=== PATIENT | female | born 1995 | race Two or more races ===

== ENCOUNTER 2018-12-12 08:02 | Emergency (ER) | payer OTHER ==
[2018-12-12] MEDS ORDERED: ONDANSETRON HCL INJ/PF 4 MG/2 ML SDV IV ONE (09:10)
[2018-12-12] MEDS ORDERED: NORMAL SALINE 1000 ML 1,000 ML IV ONE (09:10)
--- NOTE | 2018-12-12 09:10 | ER Document Report ---
ED General - General Chief Complaint: Nausea/Vomiting Stated Complaint: NAUSEA,VOMITING Time Seen by Provider: 12/12/18 09:10 TRAVEL OUTSIDE OF THE [place] IN LAST 30 DAYS: No - HPI Notes: 23-year-old female presents with nausea vomiting starting Thursday. Patient says it started with a migraine headache that she classically suffers from but that is now resolved. Patient unable to tolerate oral intake. Denies fever chills or any gross abdominal pain denies diarrhea. Patient has already had a confirmation ultrasound performed showing intrauterine . - Related Data Allergies/Adverse Reactions: No Known Allergies Allergy (Verified 12/12/18 08:05) Past Medical History - Social History Smoking Status: Unknown if Ever Smoked Family History: None Review of Systems - Review of Systems Notes: REVIEW OF SYSTEMS: CONSTITUTIONAL: -fevers, -chills EENT: -eye pain, -difficulty swallowing, -nasal congestion CARDIOVASCULAR: -chest pain, -syncope. RESPIRATORY: -cough, -SOB GASTROINTESTINAL: -abdominal pain, positive nausea and vomiting, -diarrhea GENITOURINARY: -dysuria, -hematuria MUSCULOSKELETAL: -back pain, -neck pain SKIN: -rash or skin lesions. HEMATOLOGIC: -easy bruising or bleeding. LYMPHATIC: -swollen, enlarged glands. NEUROLOGICAL: -altered mental status or loss of consciousness, -headache, - neurologic symptoms PSYCHIATRIC: -anxiety, -depression. ALL OTHER SYSTEMS REVIEWED AND NEGATIVE. Physical Exam - Vital signs Vitals: Temp Pulse Resp BP Pulse Ox 98.3 F 99 16 135/92 H 99 12/12/18 08:09 12/12/18 08:09 12/12/18 08:09 12/12/18 08:09 12/12/18 08:09 - Notes Notes: PHYSICAL EXAMINATION: GENERAL: Well-appearing, well-nourished and in no acute distress. HEAD: Atraumatic, normocephalic. EYES: Pupils equal round and reactive to light, extraocular movements intact, sclera anicteric, conjunctiva are normal. ENT: nares patent, oropharynx clear without exudates. Moist mucous membranes. NECK: Normal range of motion, supple without lymphadenopathy LUNGS: Breath sounds clear to auscultation bilaterally and equal. No wheezes rales or rhonchi. HEART: Regular rate and rhythm without murmurs ABDOMEN: Soft, nontender, normoactive bowel sounds. No guarding, no rebound. No masses appreciated. EXTREMITIES: Normal range of motion, no pitting or edema. No cyanosis. NEUROLOGICAL: Cranial nerves grossly intact. Normal speech, normal gait. Normal sensory and motor exams. PSYCH: Normal mood, normal affect. SKIN: Warm, Dry, normal turgor, no rashes or lesions noted. Course - Re-evaluation Re-evalutation: 12/12/18 09:18 Well-appearing young female no chronic medical history stable vital signs within normal limits presents with a short course of nausea and vomiting. Patient be given fluid resuscitation antiemetics will check labs. 12/12/18 10:18 Gross lab abnormalities mild dehydration and ketosis. Patient given IV fluids and dextrose with antiemetics feeling markedly improved will be discharged home Given strict return precautions if anything should change please return - Vital Signs Vital signs: Temp Pulse Resp BP Pulse Ox 98.3 F 99 16 135/92 H 99 12/12/18 08:09 12/12/18 08:09 12/12/18 08:09 12/12/18 08:09 12/12/18 08:09 - Laboratory Result Diagrams: 12/12/18 09:20 12/12/18 09:20 Laboratory results interpreted by me: 12/12/18 12/12/18 12/12/18 09:20 09:20 09:20 Seg Neutrophils % 79.3 H BUN 21 H Urine Protein 30 H Urine Ketones 300 H Urine Ascorbic Acid 20 H Discharge - Discharge Clinical Impression: Nausea and vomiting Qualifiers: Vomiting type: unspecified Vomiting Intractability: non-intractable Qualified Code(s): R11.2 - Nausea with vomiting, unspecified Disposition: HOME, SELF-CARE Instructions: Prescribed Antidiarrhea Medications ([facility]) Additional Instructions: See your PCP and USABILITY STRATEGIST Prescriptions: Metoclopramide HCl [Reglan 10 mg Tablet] 10 mg PO Q8H PRN #20 tablet PRN Reason: For Nausea/Vomiting
[2018-12-12] MEDS ORDERED: DEXTROSE 50%-WATER 25 GM/50 ML DISP.SYRIN IV ONE (09:16)
[2018-12-12] MEDS ORDERED: METOCLOPRAMIDE HCL INJ/PF 10 MG/2 ML SDV IV ONE (09:16)
[2018-12-12 09:52] LABS: ABSOLUTE LYMPHOCYTES (AUTO) 1.3 10^3/uL (0.5-4.7); ABSOLUTE MONOCYTES (AUTO) 0.6 10^3/uL (0.1-1.4); ABSOLUTE NEUT (AUTO) 7.5 10^3/uL (1.7-8.2); BASOPHILS % (AUTO) 0.2 % (0-2); EOSINOPHILS % (AUTO) 0.1 % (0-6); HEMATOCRIT 40.4 % (36.0-47.0); LYMPHOCYTES % (AUTO) 14.2 % (13-45); MEAN CORPUSCULAR HEMOGLOBIN 30.6 pg (27.0-33.4); MEAN CORPUSCULAR HGB CONC 34.6 g/dL (32.0-36.0); MEAN CORPUSCULAR VOLUME 88 fl (80-97); MONOCYTES % (AUTO) 6.2 % (3-13); PLATELET COUNT 233 10^3/uL (150-450); RED BLOOD COUNT 4.57 10^6/uL (3.72-5.28); RED CELL DISTRIBUTION WIDTH 12.7 % (11.5-14.0); SEGMENTED NEUTROPHILS % (AUTO) 79.3 % (42-78); TOTAL CELLS COUNTED % (AUTO) 100 %; WHITE BLOOD COUNT 9.5 10^3/uL (4.0-10.5)
[2018-12-12 09:55] LABS: APPEARANCE,URINE CLEAR; BILIRUBIN,URINE NEGATIVE (NEGATIVE); COLOR,URINE YELLOW; GLUCOSE, URINE NEGATIVE (NEGATIVE); KETONES,URINE 300 mg/dL (NEGATIVE)
[2018-12-12 09:56] LABS: LEUKOCYTE ESTERASE,URINE NEGATIVE (NEGATIVE); NITRITE,URINE NEGATIVE (NEGATIVE); PROTEIN,URINE 30 mg/dL (NEGATIVE); URINE SPECIFIC GRAVITY 1.031; UROBILINOGEN,URINE NEGATIVE mg/dL (<2.0)
[2018-12-12 10:08] LABS: ALANINE AMINOTRANSFERASE 17 U/L (9-52); ALBUMIN 4.6 g/dL (3.5-5.0); ALKALINE PHOSPHATASE 50 U/L (38-126); ANION GAP 12 (5-19); ASPARTATE AMINO TRANSFERASE 22 U/L (14-36); BILIRUBIN,DIRECT 0.2 mg/dL (0.0-0.4); BILIRUBIN,TOTAL 0.5 mg/dL (0.2-1.3); BLOOD UREA NITROGEN 21 mg/dL (7-20); CARBON DIOXIDE 25 mmol/L (22-30); CHLORIDE 101 mmol/L (98-107); GLUCOSE 107 mg/dL (75-110); POTASSIUM 4.2 mmol/L (3.6-5.0); SODIUM 137.9 mmol/L (137-145); TOTAL PROTEIN 7.9 g/dL (6.3-8.2)
[2018-12-12 10:47] VITALS: BP 127/63
== END 2018-12-12 10:48 | disposition home or self-care (01) ==
LOC: ER 08:02
DX: R11.2 Nausea with vomiting, unspecified (principal); E86.0 Dehydration
CPT/HCPCS: 99283; 96361; 96374; 96375; 36415; 85025; 80053; 81001; J3490; J2765; J7030

== ENCOUNTER 2018-12-26 10:33 | Emergency (ER) | payer OTHER ==
[2018-12-26] MEDS ORDERED: METOCLOPRAMIDE HCL INJ/PF 10 MG/2 ML SDV IV ONE (11:12)
[2018-12-26] MEDS ORDERED: NORMAL SALINE 1000 ML 1,000 ML IV ONE (11:12)
--- NOTE | 2018-12-26 11:15 | ER Document Report ---
ED Medical Screen (RME) - General Chief Complaint: Nausea/Vomiting Stated Complaint: VOMITING Time Seen by Provider: 12/26/18 11:02 Notes: 23-year-old female presents with nausea and vomiting that started this past Thursday precipitated by a migraine headache. She said it was a typical migraine headache for her and she presented to this emergency department on December 10 for the same presentation. Currently patient is unable to tolerate oral intake. Denies fever, chills, or any gross abdominal pain, denies diarrhea. I have greeted and performed a rapid initial assessment of this patient. A comprehensive ED assessment and evaluation of the patient, analysis of test results and completion of medical decision making process will be conducted by an additional ED providers. TRAVEL OUTSIDE OF THE [place] IN LAST 30 DAYS: No - Related Data Allergies/Adverse Reactions: No Known Allergies Allergy (Verified 12/26/18 10:34) Past Medical History Neurological Medical History: Reports: Hx Migraine Renal/ Medical History: Denies: Hx Peritoneal Dialysis Physical Exam - Vital signs Vitals: Temp Pulse Resp BP Pulse Ox 98.7 F 96 15 129/87 H 96 12/26/18 10:37 12/26/18 10:37 12/26/18 10:37 12/26/18 10:37 12/26/18 10:37 - Notes Notes: PHYSICAL EXAMINATION: Reviewed vital signs and charting by RN GENERAL: Alert, interacts well. No acute distress. HEAD: Normocephalic, atraumatic. EYES: Pupils equal and round. Extraocular movements intact. ENT: Oral mucosa dry NECK: Full range of motion. Trachea midline. LUNGS: Clear to auscultation bilaterally, no wheezes, rales, or rhonchi. No respiratory distress. HEART: Regular rate and rhythm. No murmur ABDOMEN: Deferred in triage EXTREMITIES: Moves all 4 extremities spontaneously. No edema, No cyanosis. PSYCH: Normal affect, normal mood. SKIN: Warm, dry, normal turgor. No rashes or lesions noted. Course - Vital Signs Vital signs: Temp Pulse Resp BP Pulse Ox 98.7 F 96 15 129/87 H 96 12/26/18 10:37 12/26/18 10:37 12/26/18 10:37 12/26/18 10:37 12/26/18 10:37
[2018-12-26 11:43] LABS: ABSOLUTE LYMPHOCYTES (AUTO) 1.5 10^3/uL (0.5-4.7); ABSOLUTE MONOCYTES (AUTO) 0.6 10^3/uL (0.1-1.4); ABSOLUTE NEUT (AUTO) 7.5 10^3/uL (1.7-8.2); BASOPHILS % (AUTO) 0.2 % (0-2); HEMATOCRIT 40.7 % (36.0-47.0); HEMOGLOBIN 13.8 g/dL (12.0-15.5); LYMPHOCYTES % (AUTO) 16.1 % (13-45); MEAN CORPUSCULAR HEMOGLOBIN 30.2 pg (27.0-33.4); MEAN CORPUSCULAR VOLUME 89 fl (80-97); MONOCYTES % (AUTO) 6.3 % (3-13); PLATELET COUNT 236 10^3/uL (150-450); RED BLOOD COUNT 4.58 10^6/uL (3.72-5.28); RED CELL DISTRIBUTION WIDTH 12.8 % (11.5-14.0); SEGMENTED NEUTROPHILS % (AUTO) 77.4 % (42-78); TOTAL CELLS COUNTED % (AUTO) 100 %; WHITE BLOOD COUNT 9.6 10^3/uL (4.0-10.5)
[2018-12-26 11:56] LABS: APPEARANCE,URINE SLIGHTLY-CLOUDY; BILIRUBIN,URINE NEGATIVE (NEGATIVE); COLOR,URINE YELLOW; GLUCOSE, URINE NEGATIVE (NEGATIVE); KETONES,URINE 80 mg/dL (NEGATIVE); LEUKOCYTE ESTERASE,URINE TRACE (NEGATIVE); NITRITE,URINE NEGATIVE (NEGATIVE); PROTEIN,URINE 30 mg/dL (NEGATIVE); URINE SPECIFIC GRAVITY 1.028; UROBILINOGEN,URINE NEGATIVE mg/dL (<2.0)
[2018-12-26 12:09] LABS: ALANINE AMINOTRANSFERASE 20 U/L (9-52); ALBUMIN 4.6 g/dL (3.5-5.0); ALKALINE PHOSPHATASE 61 U/L (38-126); ANION GAP 12 (5-19); ASPARTATE AMINO TRANSFERASE 20 U/L (14-36); BILIRUBIN,DIRECT 0.3 mg/dL (0.0-0.4); BILIRUBIN,TOTAL 0.5 mg/dL (0.2-1.3); BLOOD UREA NITROGEN 17 mg/dL (7-20); CALCIUM 10.1 mg/dL (8.4-10.2); CARBON DIOXIDE 25 mmol/L (22-30); CHLORIDE 101 mmol/L (98-107); GLUCOSE 87 mg/dL (75-110); POTASSIUM 4.1 mmol/L (3.6-5.0); TOTAL PROTEIN 7.8 g/dL (6.3-8.2)
--- NOTE | 2018-12-26 12:26 | ER Document Report ---
ED General - General Chief Complaint: Nausea/Vomiting Stated Complaint: VOMITING Time Seen by Provider: 12/26/18 11:02 Notes: 23-year-old female presents with nausea and vomiting that started this past Thursday precipitated by a migraine headache. She said it was a typical migraine headache for her and she presented to this emergency department on December 10 for the same presentation. Currently patient is unable to tolerate oral intake. Denies fever, chills, or any gross abdominal pain, denies diarrhea. TRAVEL OUTSIDE OF THE [place] IN LAST 30 DAYS: No - Related Data Allergies/Adverse Reactions: No Known Allergies Allergy (Verified 12/26/18 10:34) Past Medical History - Social History Smoking Status: Never Smoker Family History: None Neurological Medical History: Reports: Hx Migraine Renal/ Medical History: Denies: Hx Peritoneal Dialysis Review of Systems - Review of Systems Constitutional: See HPI EENT: No symptoms reported Cardiovascular: No symptoms reported Respiratory: See HPI Gastrointestinal: See HPI Genitourinary: See HPI Female Genitourinary: See HPI Musculoskeletal: No symptoms reported Skin: No symptoms reported Hematologic/Lymphatic: No symptoms reported Neurological/Psychological: See HPI Physical Exam - Vital signs Vitals: Temp Pulse Resp BP Pulse Ox 98.7 F 96 15 129/87 H 96 12/26/18 10:37 12/26/18 10:37 12/26/18 10:37 12/26/18 10:37 12/26/18 10:37 - Notes Notes: PHYSICAL EXAMINATION: Reviewed vital signs and charting by RN GENERAL: Alert, interacts well. No acute distress. HEAD: Normocephalic, atraumatic. EYES: Pupils equal and round. Extraocular movements intact. ENT: Oral mucosa dry NECK: Full range of motion. Trachea midline. LUNGS: Clear to auscultation bilaterally, no wheezes, rales, or rhonchi. No respiratory distress. HEART: Regular rate and rhythm. No murmur ABDOMEN: Deferred in triage EXTREMITIES: Moves all 4 extremities spontaneously. No edema, No cyanosis. PSYCH: Normal affect, normal mood. SKIN: Warm, dry, normal turgor. No rashes or lesions noted. Course - Re-evaluation Re-evalutation: 12/26/18 13:05 Patient presents with intractable nausea and vomiting. Seen here 2 weeks ago for the same problem and symptoms resolved with Reglan. Patient received normal saline 1 L and Reglan 10 mg IV. Patient states her symptoms have completely res olved. I have given her a small prescription for Reglan and told her to follow- up with her matchbook assembler. Urinalysis did show 80 ketones so she probably had some mild dehydration. All lab work was within normal limits and vital signs were within normal limits, patient is not tachycardic or appears clinically dehydrated. She is stable for discharge. - Vital Signs Vital signs: Temp Pulse Resp BP Pulse Ox 98.7 F 96 15 129/87 H 96 12/26/18 10:37 12/26/18 10:37 12/26/18 10:37 12/26/18 10:37 12/26/18 10:37 - Laboratory Result Diagrams: 12/26/18 11:29 12/26/18 11:29 Laboratory results interpreted by me: 12/26/18 12/26/18 11:29 11:29 Beta HCG, Quant 41520.00 H Urine Protein 30 H Urine Ketones 80 H Ur Leukocyte Esterase TRACE H Discharge - Discharge Clinical Impression: Mild dehydration Nausea and vomiting Qualifiers: Vomiting type: unspecified Vomiting Intractability: intractable Qualified Code(s): R11.2 - Nausea with vomiting, unspecified Condition: Good Disposition: HOME, SELF-CARE Additional Instructions: You have been seen for vomiting during . You should continue to drink plenty of water and consider taking a solution such as Pedialyte if your having difficulty eating food. Please return if you become unable to drink any fluids for more than 12 hours, urinate less than twice a day, pass out, or have any other symptoms that are concerning to you. For nausea and vomiting during I recommend: Start with 10-12.5 mg of pyridoxine (vitamin B6) three times a day for 2 days. If not fully effective, Increase to 12.5 mg of pyridoxine four times a day for 2 days. If not fully effective, Increase to 25 mg of pyridoxine three times a day for 2 days. If not fully effective, Continue 25 mg pyridoxine 3 times a day, and add 12.5 mg of doxylamine before b edtime each day for 2 days. If not fully effective, Continue 25 mg pyridoxine 3 times a day, and take 12.5 mg of doxylamine twice a day. If not fully effective, Continue 25 mg pyridoxine 3 times a day, and take 12.5 mg of doxylamine three times a day. If not fully effective, Continue 25 mg pyridoxine 3 times a day, and 12.5 mg of doxylamine 3 times a day, while adding Emetrol, one to two tablespoons (15-30 cc) taken once or twice a day as needed. (Emetrol is an [id number] mixture of sugar syrups and phosphoric acid [phosphorylated carbohydrate solution]) that acts by soothing the actual wall of the gastrointestinal tract). If not fully effective, Consult with your doctor.
[2018-12-26 13:23] VITALS: BP 123/85
== END 2018-12-26 13:25 | disposition home or self-care (01) ==
LOC: ER 10:33
DX: R11.2 Nausea with vomiting, unspecified (principal); E86.0 Dehydration
CPT/HCPCS: 99283; 96361; 96374; 36415; 87086; 84702; 85025; 80053; 81001; J2765; J7030

== ENCOUNTER 2019-07-13 22:42 | Inpatient (IN) | payer BC ==
[2019-07-13 23:07] LABS: APPEARANCE,URINE SLIGHTLY-CLOUDY; BILIRUBIN,URINE NEGATIVE (NEGATIVE); COLOR,URINE YELLOW; GLUCOSE, URINE NEGATIVE (NEGATIVE); KETONES,URINE NEGATIVE (NEGATIVE); LEUKOCYTE ESTERASE,URINE MODERATE (NEGATIVE); NITRITE,URINE NEGATIVE (NEGATIVE); PROTEIN,URINE 100 mg/dL (NEGATIVE); URINE SPECIFIC GRAVITY 1.019
[2019-07-13 23:27] LABS: URINE AMPHETAMINES SCREEN NEGATIVE; URINE BARBITURATES SCREEN NEGATIVE; URINE BENZODIAZEPINES SCREEN NEGATIVE; URINE COCAINE SCREEN NEGATIVE; URINE MARIJUANA (THC) SCREEN NEGATIVE; URINE METHADONE SCREEN NEGATIVE; URINE PHENCYCLIDINE SCREEN NEGATIVE
[2019-07-14] MEDS ORDERED: MISOPROSTOL 0.2 MG TABLET ONE (02:21)
[2019-07-14] MEDS ORDERED: OXYTOCIN 10 UNIT/ML VIAL ONE (02:21)
[2019-07-14] MEDS ORDERED: LIDOCAINE 1% INJ-PF (10 MG/ML) 30 ML SDV ONE (02:22)
[2019-07-14] MEDS ORDERED: OXYTOCIN/NORMAL SALINE 20 UNIT/1,000 ML RTUINJ ONE (02:22)
[2019-07-14] MEDS ORDERED: FENTANYL/BUPIVACAINE/NS/PF 300 MCG/150 ML RTUINJ EPI ONE (02:52)
[2019-07-14] MEDS ORDERED: BUPIVACAINE HCL 0.25 % INJ/PF (2.5 MG/1 ML) 30 ML VIAL ONE (02:52)
[2019-07-14] MEDS ORDERED: EPHEDRINE SULFATE INJ 50 MG/1 ML AMPULE ONE (02:52)
[2019-07-14 02:56] LABS: ABSOLUTE LYMPHOCYTES (AUTO) 1.6 10^3/uL (0.5-4.7); ABSOLUTE MONOCYTES (AUTO) 0.8 10^3/uL (0.1-1.4); ABSOLUTE NEUT (AUTO) 5.3 10^3/uL (1.7-8.2); BASOPHILS % (AUTO) 0.4 % (0-2); EOSINOPHILS % (AUTO) 0.5 % (0-6); HEMATOCRIT 27.2 % (36.0-47.0); HEMOGLOBIN 9.3 g/dL (12.0-15.5); LYMPHOCYTES % (AUTO) 20.4 % (13-45); MEAN CORPUSCULAR HEMOGLOBIN 27.3 pg (27.0-33.4); MEAN CORPUSCULAR HGB CONC 34.2 g/dL (32.0-36.0); MEAN CORPUSCULAR VOLUME 80 fl (80-97); MONOCYTES % (AUTO) 10.8 % (3-13); PLATELET COUNT 184 10^3/uL (150-450); RED BLOOD COUNT 3.41 10^6/uL (3.72-5.28); RED CELL DISTRIBUTION WIDTH 14.7 % (11.5-14.0); SEGMENTED NEUTROPHILS % (AUTO) 67.9 % (42-78); TOTAL CELLS COUNTED % (AUTO) 100 %; WHITE BLOOD COUNT 7.8 10^3/uL (4.0-10.5)
--- NOTE | 2019-07-14 06:05 | Admission Physical ---
Datetime Report Generated by CPN: 07/14/2019 06:05 CURRENT ADMISSION Chief Complaint: Other Chief Complaint Other: vaginal bleeding Indication for Induction: Not Applicable Admit Impression : Term, Intrauterine ; Active Labor Admit Plan: Admit to Unit; Initiate Labor Augmentation Protocol ALLERGIES Medication Allergies: No Medication Allergies: No Known Allergies (07/13/2019) Latex: No Latex Allergies Food Allergies: None Environmental Allergies: none OBSTETRICAL HISTORY EDC: 07/15/2019 00:00 : 1 Para: 0 Term: 0 : 0 SAB: 0 IAB: 0 Ectopic: 0 Livin Cesareans: 0 Multiple Births: 0 Gestational Diabetes: No Rh Sensitization: No Incompetent Cervix: No ALISTAIR: No Infertility: No ART Treatment: No Uterine Anomaly: No IUGR: No Hx Previous C/S: No Macrosomia: No Hx Loss/Stillborn: No PIH: No Hx : No Placenta Previa/Abruption: No Depression/PP Depression: No PTL/PROM: No Post Hemorrhage: No Current Procedures: Ultrasound Obstetrical History Comments: G1- Current SEE RECORDS Alcohol: No Marijuana : No Cocaine: No Other Illicit Drugs: No Cigarettes: Never Smoker. [id number] MEDICAL HISTORY Diabetes: No Blood Transfusion: No Pulmonary Disease (Asthma, TB): No Breast Disease: No Hypertension: No Multimedia Journalist Surgery: No Heart Disease: No Hosp/Surgery: Yes Autoimmune Disorder: No Anesthetic Complications: No Kidney Disease: No Abnormal Pap Smear: No Neuro/Epilepsy: No Psychiatric Disorders: Yes Other Medical Diseases: No Hepatitis/Liver Disease: No Significant Family History: No Varicosities/Phlebitis: No Trauma/Violence : No Thyroid Dysfunction: No Medical History Comments: [place] teeth at age 18/anxiety INFECTIOUS HISTORY Gonorrhea: No Genital Herpes: No Chlamydia: No Tuberculosis: No Syphilis: No Hepatitis: No HIV/AIDS Exposure: No Rash or Viral Illness: No HPV: No PHYSICAL EXAM General: Normal HEENT: Normal Neurologic: Normal Thyroid: Normal Heart: Normal Lungs: Normal Breast: Normal Back: Normal Abdomen: Normal Genitourinary Exam: Normal Extremities: Normal DTRs: Normal Pelvic Type: Adequate Vital Signs: Reviewed; Within Normal Limits VAGINAL EXAM Dilatation: 9 Effacement: 80 Station: -2 Contraction Comments: q 4 min FETUS A EGA: 39.6 Monitoring: External US FHR- Baseline: 120s Variability: Moderate 6-25bpm Accelerations: 15X15 Decelerations: None FHR Category: Category I Admit Comment: with an IUP @ 39-5/7 weeks presents to L_D c/o vaginal bleeding. She reports good movement. Her cervical exam was 3 cm upon arrival and she rapidly progressed to 5 cm. She has no other co-morbidities. GBS Neg. PLANS FOR LABOR AND DELIVERY Pain Management: Medications; Epidural Feeding Preference: Breast Benefit of Breast Feed Discussed: Yes Circumcision: N/A INFORMED CONSENT Informed Consent Obtained: Vaginal Delivery Signature: with User ID: [email or web address]
[2019-07-14] MEDS ORDERED: OXYTOCIN/NORMAL SALINE 20 UNIT/1,000 ML RTUINJ IV PRN ×2 (10:30→12:48)
[2019-07-14] MEDS ORDERED: DIPHENHYDRAMINE HCL 25 MG CAPSULE PO PRN (12:48)
[2019-07-14] MEDS ORDERED: PSEUDOEPHEDRINE HCL 30 MG TABLET PO PRN (12:48)
[2019-07-14] MEDS ORDERED: MEASLES,MUMPS&RUBELLA VACC/PF 0.5 ML VIAL SUBCUT PRN (12:48)
[2019-07-14] MEDS ORDERED: GLYCERIN/WITCH HAZEL LEAF 1 EACH MED..WIPE TP PRN (12:48)
[2019-07-14] MEDS ORDERED: DIBUCAINE 1% OINTMENT 28 GM TP PRN (12:48)
[2019-07-14] MEDS ORDERED: DIPH/PERTUSS(ACELL)/TETANUS VAC/PF 0.5 ML SYR (>=10YO) IM PRN (12:48)
[2019-07-14] MEDS ORDERED: MAGNESIUM HYDROXIDE SUSP 30 ML UDCUP PO PRN (12:48)
[2019-07-14] MEDS ORDERED: ACETAMINOPHEN WITH CODEINE #3 TABLET PO PRN ×2 (12:48)
[2019-07-14] MEDS ORDERED: PROMETHAZINE HCL 25 MG TABLET PO PRN (12:48)
[2019-07-14] MEDS ORDERED: PROMETHAZINE HCL INJ 25 MG/1 ML VIAL IV PRN (12:48)
[2019-07-14] MEDS ORDERED: ACETAMINOPHEN 650 MG SUPP.RECT PR PRN (12:48)
[2019-07-14] MEDS ORDERED: ZOLPIDEM TARTRATE 5 MG TABLET PO PRN (12:48)
[2019-07-14] MEDS ORDERED: NA PHOS,M-B/NA PHOS,DI-BA (ADULT) 133 ML ENEMA PR PRN (12:48)
[2019-07-14] MEDS ORDERED: PROMETHAZINE HCL 25 MG SUPP.RECT PR PRN (12:48)
--- NOTE | 2019-07-14 15:04 | Delivery Summary ---
Del Sum A-C Datetime Report Generated by CPN: 07/14/2019 15:03 DELIVERY PERSONNEL DELIVERY PERSONNEL: [id number] Delivery Doctor:: Antonietta Valdovinos CNM Nurse Metal Flow Coordinator Certified:: Antonietta Valdovinos CNM Labor and Delivery Nurse:: Annette Anderson RNlaundry supervisor Nurse:: Erin Interiano RN Nursery Nurse:: Vero Martinez RN Nursery Nurse:: Latrell Grimaldo RN MATERNAL INFORMATION Delivery Anesthesia: Epidural Medications After Delivery: Pitocin Bolus-Please Comment Meds After Delivery Comment: 20 units in 1000mL NS open bolus Estimated Blood Loss (ml): 200 Delivery QBL: 150 Maternal Complications: None Provider Comments: Called to room 2. Patient pushing-vertex on perineum. live female at 1219 after 80 sec shoulder dystocia. Sabino and suprapubic pressure used to facilitate delivery of shoulders. Spontaneous respirations after stimulation. 3-vessel cord, clamped after 2 min delay, then cut by FOB. Nursery RN present for delivery and immediate care. Placenta expelled at 1226, Holder delivery, intact. Dr Cortez called in for repair of tear that extended toward rectum. LABOR SUMMARY EDC: 07/15/2019 00:00 No. Babies in Womb: 1 Attempted: No Labor Anesthesia: Epidural LABOR INFORMATION Reason for Induction: Not Applicable Onset of Labor: 07/14/2019 02:20 Complete Dilatation: 07/14/2019 11:22 Oxytocin: Augmentation Group B Beta Strep: neg Antibiotics # of Doses: 0 Antibiotics Time of Last Dose: n/a Name of Antibiotic Given: n/a Steroids Given: None Reason Steroids Not Administered: Not Applicable MEMBRANES Membranes Rupture Method: Artificial Rupture of Membranes: 07/14/2019 06:03 Length of Rupture (hr): 6.27 Amniotic Fluid Color: Clear Amniotic Fluid Amount: Moderate Amniotic Fluid Odor: Normal STAGES OF LABOR Stage 1 hr: 9 Stage 1 min: 2 Stage 2 hr: 0 Stage 2 min: 57 Stage 3 hr: 0 Stage 3 min: 7 Total Time in Labor hr: 10 Total Time in Labor min: 6 VAGINAL DELIVERY Episiotomy: None Laceration #1: Perineal Laceration Extension #1: Third Degree, IIIb (Greater than 50 percent ext anal sphincter thickness torn) Laceration #2: None Laceration Extension #2: N/A Laceration #3: None Laceration Extension #3: N/A Laceration Repair: Yes Laceration Repair Note: The vaginal portion was repaired with 3-0 chromic in a running locking fashion. The external anal sphincter was grasped with allis clamps and 3 figure 8 sutures of 3-0 vicryl were placed bringing the EAS back together. No sutures through rectum and good tone noted on rectal exam. The remainder of the perineum was closed with 3-0 chromic suture. I asked her to remain on a stool softener for her recovery. Sponge Count Correct: Yes; Vaginal Sweep Performed Sharps Count Correct: Yes CSECTION DELIVERY Primary Indication: N/A Secondary Indication: N/A CSection Incision: N/A BABY A INFORMATION Infant Delivery Date/Time: 07/14/2019 12:19 Method of Delivery: Vaginal Born in Route : Yes : N/A Forceps: N/A Vacuum Extraction: N/A Shoulder Dystocia : Yes SHOULDER DYSTOCIA BABY A Delivery of Head: 07/14/2019 12:18 Time Head to Delivery : 1.0 1st Intervention to Resolve: Gentle Attempt at Traction, Assisted by Maternal Expulsive Efforts 2nd Intervention to Resolve: McRobert's Maneuver 3rd Intervention to Resolve: Suprapubic Pressure Verify NO Fundal Pressure: No Fundal Pressure Applied Arm Under Symphisis at Del: Left Shoulder Dystocia Comments: 80 second shoulder dystocia PRESENTATION/POSITION BABY A Presentation: Cephalic Cephalic Presentation: Vertex Vertex Position: Right Occipital Anterior Breech Presentation: N/A PLACENTA INFORMATION BABY A Placenta Delivery Time : 07/14/2019 12:26 Placenta Method of Delivery: Spontaneous Placenta Status: Delivered SCORES BABY A Heart Rate 1 min: >100 bpm Resp Effort 1 min: Slow, Irregular Reflex Irritability 1 min: Grimace Muscle Tone 1 min: Some Flexion of Extremities Color 1 min: Blue/Pale Resuscitation Effort 1 min: N/A SCORE 1 MIN: 5 Heart Rate 5 min: >100 bpm Resp Effort 5 min: Good Cry Reflex Irritability 5 min: Cough or Sneeze or Pulls Away Muscle Tone 5 min: Active Motion Color 5 min: Body [place], Extremities Blue Resuscitation Effort 5 min: Tactile Stimulation SCORE 5 MIN: 9 Heart Rate 10 min: >100 bpm Resp Effort 10 min: Good Cry Reflex Irritability 10 min: Cough or Sneeze or Pulls Away Muscle Tone 10 min: Active Motion Color 10 min: Body [place], Extremities Blue SCORE 10 MIN: 9 INFORMATION BABY A Gestational Age at Delivery: 39.6 Gestational Status: Full Term- 39- 40.6 Weeks Outcome : Liveborn Condition : Stable Sex: Female IDENTIFICATION BABY A Infant Verification Date/Time: 07/14/2019 12:39 ID Band Number: [id number] Mother's Name Verified: Yes Infant RN Verifying Infant: Candelaria Anderson, RN Additional Verifying Personnel: SSandra Sanchez, EDGE SANDER II WEIGHT/LENGTH BABY A Infant Birthweight (gm): 3553 Weight (lb): 7 Infant Weight (oz): 13 Infant Length (in): 20.00 Infant Length (cm): 50.80 CORD INFORMATION BABY A No. Cord Vessels: 3 Nuchal Cord : Around Neck x1, Loose Cord Blood Taken: Yes-For Storage (Mom's Blood type +) Infant Suction: Mouth; Nose ASSESSMENT BABY A Complications: Shoulder Dystocia; Other Infant Complications- Other: terminal mec Skin to Skin: Yes Skin to Skin Time (min): 60 Infant Care By: Rolando Martinez RN Transferred To: Remains with Mother BABY B INFORMATION : N/A SIGNATURES Assignment: Damain Cortez, MD Signature: with User ID: [email or web address] : with User ID: [email or web address] : I personally evaluated and examined the patient in conjunction with the MLP and agree with the assessment, treatment plan and disposition.
[2019-07-14] MEDS ORDERED: ACETAMINOPHEN WITH CODEINE #3 TABLET ONE (15:13)
[2019-07-14] MEDS ORDERED: IBUPROFEN 800 MG TABLET ONE (15:13)
[2019-07-14] MEDS: IBUPROFEN 800 MG TABLET PO SCH ×2 (15:14→22:56)
[2019-07-14] MEDS ORDERED: DOCUSATE SODIUM 100 MG CAPSULE ONE (18:09)
[2019-07-14] MEDS ORDERED: FERROUS SULFATE 325 MG TABLET PO ONE (18:09)
[2019-07-14] MEDS: FERROUS SULFATE 325 MG TABLET PO SCH (18:10)
[2019-07-14] MEDS: DOCUSATE SODIUM 100 MG CAPSULE PO SCH (18:10)
[2019-07-14] MEDS: BENZOCAINE/MENTHOL AEROSOL SPRAY 56 ML TOP PRN (22:54)
[2019-07-14] MEDS: FAMOTIDINE 20 MG TABLET PO SCH (22:56)
[2019-07-15] MEDS: IBUPROFEN 800 MG TABLET PO SCH ×3 (05:39→22:57)
[2019-07-15 06:57] LABS: HEMATOCRIT 24.6 % (36.0-47.0); HEMOGLOBIN 8.1 g/dL (12.0-15.5); MEAN CORPUSCULAR HEMOGLOBIN 26.8 pg (27.0-33.4); MEAN CORPUSCULAR VOLUME 81 fl (80-97); PLATELET COUNT 186 10^3/uL (150-450); RED BLOOD COUNT 3.04 10^6/uL (3.72-5.28); RED CELL DISTRIBUTION WIDTH 15.1 % (11.5-14.0); WHITE BLOOD COUNT 13.2 10^3/uL (4.0-10.5)
[2019-07-15] MEDS: FAMOTIDINE 20 MG TABLET PO SCH ×2 (10:08→22:56)
[2019-07-15] MEDS: SENNOSIDES/DOCUSATE 8.6-50 MG 1 EACH TABLET PO SCH (10:08)
[2019-07-15] MEDS: FERROUS SULFATE 325 MG TABLET PO SCH ×2 (10:08→18:28)
[2019-07-15] MEDS: PRENATAL VITAMIN W DHA CAPSULE PO SCH (10:08)
[2019-07-15] MEDS: DOCUSATE SODIUM 100 MG CAPSULE PO SCH ×2 (10:08→18:28)
--- NOTE | 2019-07-15 12:02 | PDOC PROGRESS REPORT ---
Subjective-OB Progress Note for:: 07/15/19 Subjective: reports bleeding slowing, pain controlled with current meds, denies needs Physical Exam (OB) Vital Signs: Temp Pulse Resp BP Pulse Ox 97.9 F 83 18 109/67 98 07/15/19 08:33 07/15/19 08:33 07/15/19 08:33 07/15/19 08:33 07/15/19 08:33 Intake & Output 07/14/19 07/15/19 07/16/19 06:59 06:59 06:59 Intake Total 1999 Balance 1999 Weight 77.4 kg - Abdomen Description: Soft, Round Hernia Present: No Fundal Description: Firm, Midline Fundal Height: u/u - u/2 - Abdominal Distension: No distension Tenderness: Nontender - Extremities Lower extremities: Karen's sign - neg Calf: Normal, Nontender Objective-Diagnostic Laboratory: 07/15/19 06:42 07/15/19 06:42 WBC 13.2 H RBC 3.04 L Hgb 8.1 L Hct 24.6 L MCV 81 MCH 26.8 L MCHC 33.0 RDW 15.1 H Plt Count 186 Assessment and Plan(PN) - Assessment and Plan (1) Obstetrical laceration, third degree Is this a current diagnosis for this admission?: Yes (2) Normal vaginal delivery Is this a current diagnosis for this admission?: Yes - Time Spent with Patient Time with patient: Less than 15 minutes Medications reviewed and adjusted accordingly: Yes - Disposition Within: within 24 hours
[2019-07-16] MEDS: IBUPROFEN 800 MG TABLET PO SCH ×2 (06:00→13:52)
[2019-07-16 07:54] VITALS: BP 127/81
--- NOTE | 2019-07-16 10:26 | PDOC DISCHARGE SUMMARY ---
Impression - Admit/DC Date/PCP Admission Date/Primary Care Provider: 07/14/19 02:23 MADISYN Rodriguez JENNY ALEXA, DO Discharge Date: 07/16/19 - Discharge Diagnosis (1) Obstetrical laceration, third degree Is this a current diagnosis for this admission?: Yes (2) Normal vaginal delivery Is this a current diagnosis for this admission?: No (3) Shoulder dystocia, delivered Is this a current diagnosis for this admission?: Yes - Additional Information Discharge Diet: Regular Discharge Activity: Balance Activity w/Rest, Pelvic Rest Referrals: [facility] [Provider Group] Prescriptions: Docusate Sodium [Colace 100 mg Capsule] 100 mg PO TID #90 capsule Ibuprofen [Motrin 800 mg Tablet] 800 mg PO Q8HP PRN #60 tablet PRN Reason: Acetaminophen with Codeine [Tylenol #3 Tablet] 1 each PO Q4HP PRN #30 tablet PRN Reason: Pain Scale Of 3 Home Medications: Pnv No.103/Folic/Om3s/Fish Oil [ Gummies] 1 each PO DAILY 07/13/19 Acetaminophen with Codeine [Tylenol #3 Tablet] 1 each PO Q4HP PRN #30 tablet 07/16/19 Docusate Sodium [Colace 100 mg Capsule] 100 mg PO TID #90 capsule 07/16/19 Ferrous Sulfate [Feosol 325 mg Tablet] 325 mg PO BID tablet 07/16/19 Ibuprofen [Motrin 800 mg Tablet] 800 mg PO Q8HP PRN #60 tablet 07/16/19 HPI Gestational Age: 39+6 Reason(s) for Admission: Onset of Labor Procedures: NST Intrapartum Procedure(s): Spontaneous Vaginal Delivery - shoulder dystocia Complication(s): Laceration-Perineal Laceration-Degree: 3rd Hospital Course Hospital Course: shoulder dystocia 80 sec Results Laboratory Results: WBC 13.2 10^3/uL (4.0-10.5) H 07/15/19 06:42 RBC 3.04 10^6/uL (3.72-5.28) L 07/15/19 06:42 Hgb 8.1 g/dL (12.0-15.5) L 07/15/19 06:42 Hct 24.6 % (36.0-47.0) L 02/07/20 06:42 MCV 81 fl (80-97) 07/15/19 06:42 MCH 26.8 pg (27.0-33.4) L 07/15/19 06:42 MCHC 33.0 g/dL (32.0-36.0) 07/15/19 06:42 RDW 15.1 % (11.5-14.0) H 07/15/19 06:42 Plt Count 186 10^3/uL (150-450) 07/15/19 06:42 Lymph % (Auto) 20.4 % (13-45) 07/14/19 02:48 Spencer % (Auto) 10.8 % (3-13) 07/14/19 02:48 Eos % (Auto) 0.5 % (0-6) 07/14/19 02:48 Baso % (Auto) 0.4 % (0-2) 07/14/19 02:48 Absolute Neuts (auto) 5.3 10^3/uL (1.7-8.2) 07/14/19 02:48 Absolute Lymphs (auto) 1.6 10^3/uL (0.5-4.7) 07/14/19 02:48 Absolute Monos (auto) 0.8 10^3/uL (0.1-1.4) 07/14/19 02:48 Absolute Eos (auto) 0.0 10^3/uL (0.0-0.6) 07/14/19 02:48 Absolute Basos (auto) 0.0 10^3/uL (0.0-0.2) 07/14/19 02:48 Seg Neutrophils % 67.9 % (42-78) 07/14/19 02:48 Urine Color YELLOW 07/13/19 22:50 Urine Appearance SLIGHTLY-CLOUDY 07/13/19 22:50 Urine pH 6.0 (5.0-9.0) 07/13/19 22:50 Ur Specific Haskins 1.019 07/13/19 22:50 Urine Protein 100 mg/dL (NEGATIVE) H 07/13/19 22:50 Urine Glucose (UA) NEGATIVE mg/dL (NEGATIVE) 07/13/19 22:50 Urine Ketones NEGATIVE mg/dL (NEGATIVE) 07/13/19 22:50 Urine Blood LARGE (NEGATIVE) H 07/13/19 22:50 Urine Nitrite NEGATIVE (NEGATIVE) 07/13/19 22:50 Urine Bilirubin NEGATIVE (NEGATIVE) 07/13/19 22:50 Urine Urobilinogen 2.0 mg/dL (<2.0) H 07/13/19 22:50 Ur Leukocyte Esterase MODERATE (NEGATIVE) H 07/13/19 22:50 Urine Ascorbic Acid NEGATIVE (NEGATIVE) 07/13/19 22:50 Urine Opiates Screen NEGATIVE 07/13/19 22:50 Urine Methadone Screen NEGATIVE 07/13/19 22:50 Ur Barbiturates Screen NEGATIVE 07/13/19 22:50 Ur Phencyclidine Scrn NEGATIVE 07/13/19 22:50 Ur Amphetamines Screen NEGATIVE 07/13/19 22:50 U Benzodiazepines Scrn NEGATIVE 07/13/19 22:50 Urine Cocaine Screen NEGATIVE 07/13/19 22:50 U Marijuana (THC) Screen NEGATIVE 07/13/19 22:50 RPR NONREACTIVE (NONREACTIVE) 07/14/19 02:48 Blood Type A POSITIVE 07/14/19 02:48 Antibody Screen NEGATIVE 07/14/19 02:48 Plan Plan of Treatment: follow up at [facility] in one week for 3rd degree laceration check
[2019-07-16] MEDS: FAMOTIDINE 20 MG TABLET PO SCH (11:10)
[2019-07-16] MEDS: FERROUS SULFATE 325 MG TABLET PO SCH (11:11)
[2019-07-16] MEDS: PRENATAL VITAMIN W DHA CAPSULE PO SCH (11:11)
[2019-07-16] MEDS: DOCUSATE SODIUM 100 MG CAPSULE PO SCH (11:11)
[2019-07-16] MEDS: SENNOSIDES/DOCUSATE 8.6-50 MG 1 EACH TABLET PO SCH (11:11)
[2019-07-16] MEDS: BENZOCAINE/MENTHOL AEROSOL SPRAY 56 ML TOP PRN (11:17)
== END 2019-07-16 14:54 | disposition home or self-care (01) | DRG 768 ==
LOC: LC 22:42 → LR 07-14 02:23 → 2S 07-14 18:21
PROVIDERS: ADMIT Obstetrics & Gynecology; ATTEND Obstetrics & Gynecology
PROC: 10E0XZZ Delivery of Products of Conception, External Approach (ICD-10-PCS; principal; 2019-07-14)
PROC: 0DQR0ZZ Repair Anal Sphincter, Open Approach (ICD-10-PCS; 2019-07-14)
PROC: 10907ZC Drainage of Amniotic Fluid, Therapeutic from Products of Conception, Via Natural or Artificial Opening (ICD-10-PCS; 2019-07-14)
DX: O70.22 Third degree perineal laceration during delivery, IIIb (principal); Z37.0 Single live birth; O66.0 Obstructed labor due to shoulder dystocia; O69.81X0 Labor and delivery complicated by cord around neck, without compression, not applicable or unspecified; Z3A.39 39 weeks gestation of pregnancy
CPT/HCPCS: 36415; 80307; 81005; 85025; 85027; 86592; 86850; 86900; 86901; 88307; 94760; J2590; J3010; J3490